=== PATIENT | male | born 1960 | race Caucasian/White ===

== ENCOUNTER → 2019-01-28 | Outpatient (CLI) | payer OTHER ==
[~2019-01-28] MED LIST: 0.9 % SODIUM CHLORIDE 10 ML VIAL ONE; CETI10TA24 PO; ESCITALOPRAM OX10 MG PO; FLUT9.9S NS; GLUC100018 PO; IOHEXOL 300 MG/ML 50 ML VIAL. ONE; LIDOCAINE 1% PF 30 ML VIAL. ONE; MULT-245 PO; [UNRECOGNIZED DRUG - OTHER] EACHEYE; methylPREDNISolone ACETATE 80 MG/ML VIAL. ONE
[2019-01-28 11:10] VITALS: BP 138/79
== END | disposition home or self-care (01) ==
LOC: SURG 09:15
PROVIDERS: ATTEND Anesthesiology Pain Medicine
DX: M51.16 Intervertebral disc disorders with radiculopathy, lumbar region (principal); M54.5 Low back pain; Z79.899 Other long term (current) drug therapy
CPT/HCPCS: 62323; J1040; J2001; Q9967

== ENCOUNTER → 2021-03-01 | Day surgery (SDC) | payer OTHER ==
[~2021-03-01] MED LIST changes: -0.9 % SODIUM CHLORIDE 10 ML VIAL ONE; +0.9 % SODIUM CHLORIDE 10 ML VIAL. ONE; -CETI10TA24 PO; +CETI10TA74 PO; +DEXAMETHASONE SOD PHOS 10 MG/ML VIAL. ONE; -methylPREDNISolone ACETATE 80 MG/ML VIAL. ONE
[2021-03-01 12:01] VITALS: BP 135/89
== END | disposition home or self-care (01) ==
LOC: SURG 11:17
PROVIDERS: ATTEND Anesthesiology
DX: M51.16 Intervertebral disc disorders with radiculopathy, lumbar region (principal); M48.061 Spinal stenosis, lumbar region without neurogenic claudication; M47.26 Other spondylosis with radiculopathy, lumbar region; M19.90 Unspecified osteoarthritis, unspecified site; Z79.899 Other long term (current) drug therapy
CPT/HCPCS: 62323; A4209; A4657; A4930; J1100; Q9967